=== PATIENT | female | born 1970 | race Caucasian/White ===

== ENCOUNTER → 2020-07-01 | Outpatient (CLI) | payer BC ==
[2020-07-01 18:28] LABS: HEMOGLOBIN 14.3 gm/dl (12.3-15.3); RED BLOOD COUNT 4.74 M/UL (4.00-5.10); WHITE BLOOD COUNT 11.1 K/UL (4.5-11.0)
[2020-07-01 19:07] LABS: BUN/CREATININE RATIO 20 (0-10)
== END ==
LOC: LAB 17:45
PROVIDERS: Emergency Medicine
DX: R07.9 Chest pain, unspecified (principal); R06.02 Shortness of breath; R10.13 Epigastric pain; R53.83 Other fatigue; Z88.0 Allergy status to penicillin
CPT/HCPCS: 71046; 80053; 82550; 82553; 84484; 85025; 85379; 85652; 93005

== ENCOUNTER → 2021-11-02 | Outpatient (CLI) | payer BC | LOC: EXRD 10:45 | DX: M47.26 Other spondylosis with radiculopathy, lumbar region (principal); M51.16 Intervertebral disc disorders with radiculopathy, lumbar region; M54.50 Low back pain, unspecified | CPT/HCPCS: 72100 ==